=== PATIENT | male | born 1970 | race Caucasian/White ===

== ENCOUNTER 2016-03-12 07:16 | Emergency (ER) | payer MEDICAID ==
[~2016-03-12] VITALS: Ht 182.9 cm; Wt 73.0 kg
[~2016-03-12 07:16] MED LIST: HYDR-3533 PO; IBUP800 PO
[2016-03-12 07:19] VITALS: BP 179/88; PULSE 74; RESP 24; TEMP 97.5; O2SAT 100
[2016-03-12] MEDS ORDERED: ORPHENADRINE INJ 60 MG/2 ML AMP IM ONE (07:45)
[2016-03-12] MEDS ORDERED: KETOROLAC TROMETHAMINE 60 MG/2 ML (IM) VIAL IM ONE (07:45)
[2016-03-12] MEDS ORDERED: ROBA500T PO (07:53)
[2016-03-12] MEDS ORDERED: IBUP800T23 PO (07:53)
--- NOTE | 2016-03-12 07:54 | PD ---
HPI Chief Complaint: Back/ Neck Pain or Injury Time Seen by Provider: 07:39 Travel History International Travel<30 days: No Contact w/Intl Traveler<30days: No Traveled to known affect area: No History of Present Illness HPI 45-year-old male presents to the emergency Department with complaint of low back pain after lifting logs on . Has history of chronic low back pain and L4-L5 partial laminectomy in 2003. Pain radiates down both legs; worse on right than left. On Saturday while urinating he had stool come out unexpectedly; reports normal bowel movements thereafter. Otherwise he denies incontinence, encopresis, saddle anesthesias. Reports both his feet feel like they are "asleep." Otherwise denies loss of sensation, decreased range of motion, decreased strength to bilateral lower extremities. Pain is aggravated with movement, walking, extension of the back. Has tried ibuprofen and icy hot with no relief of symptoms. Denies fever, chills, nausea, vomiting. Denies IV drug use. Denies cancer. History of COPD. Allergies to morphine. No other modifying factors or associated signs and symptoms. PFSH Past Medical History COPD: Yes Diminished Hearing: No Respiratory: Yes (COPD) Past Surgical History Abdominal Surgery: Yes (HERNIA REPAIR) Cholecystectomy: Yes Neurologic Surgery: Yes (BACK SX) Social History Alcohol Use: No Tobacco Use: Yes (1.5 ppd) Substance Use: Yes Allergies-Medications (Allergen,Severity, Reaction): Coded Allergies: Morphine (Unverified Adverse Reaction, Intermediate, hives, 03/12/16) Reported Meds & Prescriptions Reported Meds & Active Scripts Active Ibuprofen 800 Mg Tab 800 Mg PO Q6HR PRN Robaxin (Methocarbamol) 500 Mg Tab 500 Mg PO QID PRN Review of Systems Except as stated in HPI: all other systems reviewed are Neg Physical Exam Narrative GENERAL: Well-nourished, well-developed male patient, in no acute distress SKIN: Warm and dry. HEAD: Atraumatic. Normocephalic. EYES: Pupils equal and round. No scleral icterus. No injection or drainage. ENT: Mucosa pink and moist. Airway patent. NECK: Trachea midline. CARDIOVASCULAR: Regular rate. RESPIRATORY: No accessory muscle use. GASTROINTESTINAL: Flat. MUSCULOSKELETAL: Bilateral lower extremities supple and non-tense with 2+ pedal pulses and sensory intact; with full range of motion and 5/5 strength. Active dorsiflexion and extension of bilateral feet. Bilateral straight leg raise is positive for low back pain. Ambulatory at bedside. Sitting up in bed at 90. No obvious deformities. No clubbing. No cyanosis. No edema. BACK: Midline point tenderness on palpation of the lumbar spine. Tenderness on palpation of bilateral paraspinous lumbar area. No obvious deformities. NEUROLOGICAL: Awake and alert. Oriented 3. No obvious cranial nerve deficits. Motor grossly within normal limits. Normal speech. Moves all extremities. 5/5 strength to all extremities. Sensory intact. PSYCHIATRIC: Appropriate mood and affect; insight and judgment normal. Data Data Last Documented VS Vital Signs Date Time Temp Pulse Resp B/P Pulse Ox O2 Delivery O2 Flow Rate FiO2 03/12/16 09:23 18 03/12/16 07:19 97.5 74 179/[address] Lumb Spine W/O Contrast (03/12/16 ) Ketorolac Inj (Toradol Inj) (03/12/16 07:45) Orphenadrine Inj (Norflex Inj) (03/12/16 07:45) MDM Medical Decision Making Medical Screen Exam Complete: Yes Emergency Medical Condition: Yes Medical Record Reviewed: Yes Differential Diagnosis Acute exacerbation of chronic low back pain, sciatica, low back strain Narrative Course 45-year-old male physical exam consistent with low back strain. Patient has history of chronic low back pain and L4-L5 partial laminectomy in 2003. He endorses midline point tenderness on palpation of the lumbar spine and loss of bowel movement on Saturday during urination; Reports normal bowel movements thereafter. Endorses both feet with paresthesias. Bilateral lower extremities are supple and non-tense 2+ pedal pulses and sensory intact. His pain seems to be out of proportion with physical findings. I will order a CT of the lumbar spine to rule out any acute findings secondary to history of present illness and physical findings. Denies IV drug use. Denies cancer. Toradol and Norflex administered in the ER. CT lumbar spine ordered. 0943: CT lumbar spine Minimal central to left paracentral disc bulge at L4-5. If this is to be further evaluated this should be performed with scheduled elective outpatient MRI of the lumbar spine. Patient provided copy of CT scan and recommended to follow up outpatient for MRI. Patient verbalized understanding and agreement of treatment plan. Ibuprofen and Robaxin prescribed for home. Patient is medically cleared and stable for discharge. Discussed reasons to return to the emergency department. Instructed patient to follow up with primary care provider. Patient agrees with treatment plan. The patients vital signs are stable and the patient is stable for outpatient follow- up and treatment. Patient discharged home, stable and in no acute distress. Diagnosis Primary Impression: Low back strain Qualified Code: S39.012A - Low back strain, initial encounter Referrals: Primary Care Physician Patient Instructions: General Instructions, Low Back Strain (ED) Departure Forms: Tests/Procedures, Work Release Enter return to work date: Mar 14, 2016 Additional Instructions: Tylenol or ibuprofen as directed and as needed for pain Robaxin as prescribed and as needed for muscle spasms Heating pad and/or ice to affected area to reduce pain Avoid aggravating activities; increase activity as tolerated Follow-up with primary care provider Return to emergency department immediately with worsening of symptoms Med/Other Pt SpecificInfo: Prescription(s) given Scripts Ibuprofen 800 Mg Psc288 Mg PO Q6HR PRN (PAIN SCALE 1 TO 10) #30 TAB Ref 0 Prov:Jennifer Arvizu 03/12/16 Methocarbamol (Robaxin)500 Mg [id number] Mg PO QID PRN (MUSCLE SPASM) #30 TAB Ref 0 Prov:Jennifer Arvizu 03/12/16 Disposition: 01 DISCHARGE HOME Condition: Stable Jennifer Arvizu Mar 12, 2016 07:54
[2016-03-12 09:23] VITALS: RESP 18
--- NOTE | 2016-03-12 09:39 | RADRPT ---
EXAM DATE/TIME: 03/12/2016 08:47 [facility] COMPARISON: No previous studies available for comparison. INDICATIONS : Lower back pain. RADIATION DOSE: 17.04 CTDIvol (mGy) MEDICAL HISTORY : Chronic obstructive pulmonary disease. SURGICAL HISTORY : Cholecystectomy. Hernia repair ENCOUNTER: Initial ACUITY: 1 day PAIN SCALE: 10/10 LOCATION: lower back TECHNIQUE: Volumetric scanning of the lumbar spine was performed. Multiplanar reconstructions in the sagittal, coronal and oblique axial planes were performed. Using automated exposure control and adjustment of the mA and/or kV according to patient size, radiation dose was kept as low as reasonably achievable t o obtain optimal diagnostic quality images. FINDINGS: VERTEBRAE: Normal vertebral body height. ALIGNMENT: No evidence of subluxation. T12-L1: The thecal sac has a normal diameter. No evidence of disc bulge or protrusion. The neural foramina are patent bilaterally. L1-L2: The thecal sac has a normal diameter. No evidence of disc bulge or protrusion. The neural foramina are patent bilaterally. L2-L3: The thecal sac has a normal diameter. No evidence of disc bulge or protrusion. The neural foramina are patent bilaterally. L3-L4: The thecal sac has a normal diameter. No evidence of disc bulge or protrusion. The neural foramina are patent bilaterally. L4-L5: The thecal sac has a normal diameter. There is a minimal central 2 minimal left paracentral disc bul ge. The neural foramina are patent bilaterally. L5-S1: The thecal sac has a normal diameter. No evidence of disc bulge or protrusion. The neural foramina are patent bilaterally. CONCLUSION: Minimal central to left paracentral disc bulge at L4-5. If this is to be further evaluated this shoul d be performed with scheduled elective outpatient MRI of the lumbar spine Tom Williamson MD on March 12, 2016 at 9:32 Board Certified Radiologist. This report was verified electronically.
== END 2016-03-12 10:03 | disposition home or self-care (01) ==
LOC: NEPB 07:16
DX: S39.012A Strain of muscle, fascia and tendon of lower back, initial encounter (principal); F17.210 Nicotine dependence, cigarettes, uncomplicated; Z98.1 Arthrodesis status; J44.9 Chronic obstructive pulmonary disease, unspecified; X50.0XXA Overexertion from strenuous movement or load, initial encounter; Y93.9 Activity, unspecified; Y92.9 Unspecified place or not applicable; Y99.9 Unspecified external cause status
CPT/HCPCS: 72131; 96372; 99284; J1885; J2360

== ENCOUNTER 2016-03-12 10:49 | Emergency (ER) | payer MEDICAID ==
[~2016-03-12] VITALS: Ht 182.9 cm; Wt 72.7 kg
[~2016-03-12 10:49] MED LIST changes: +IBUP800T23 PO; +ROBA500T PO
[2016-03-12 10:51] VITALS: BP 147/85; PULSE 55; RESP 24; TEMP 97.8; O2SAT 95
== END 2016-03-12 10:56 | disposition left against medical advice (07) ==
LOC: NED 10:49
DX: M79.606 Pain in leg, unspecified (principal)
CPT/HCPCS: 99281

== ENCOUNTER 2016-09-02 10:43 | Observation (INO) | payer MEDICAID ==
[~2016-09-02] VITALS: Ht 182.9 cm; Wt 73.5 kg
[~2016-09-02 10:43] MED LIST changes: -HYDR-3533 PO; -IBUP800 PO
[2016-09-02 10:45] VITALS: BP 129/70; PULSE 68; RESP 20; TEMP 98.2; O2SAT 98
[2016-09-02] MEDS ORDERED: ALBUAER3 INH (10:52)
[2016-09-02 11:02] VITALS: BP_SYST 117; BP_SYST 140; BP_DIAS 61; BP_DIAS 81; PULSE 61; RESP 16; O2SAT 100
[2016-09-02] MEDS: SODIUM CHLORIDE 0.9% FLUSH 10 ML FLUSH IVF PRN ×2 (11:07→12:38)
--- NOTE | 2016-09-02 11:12 | PD ---
HPI Chief Complaint: Chest Pain Time Seen by Provider: 10:51 Travel History International Travel<30 days: No Contact w/Intl Traveler<30days: No Traveled to known affect area: No History of Present Illness HPI Patient is a 45-year-old male with history of COPD, presents to emergency room with complaints of chest pain. Patient reports that he has been having chest pain for the past couple days, patient reports the chest pain was initially to his right chest and reports that chest pain is not throughout his chest wall. Patient reports that chest pain has been constant, feels a Pressure to his chest. Patient reports that he has been feeling short of breath with his symptoms, patient reports that taking a deep breath exacerbates symptoms. Patient denies history of chest pain in the past. Patient with no recent travels. Patient is a smoker. Patient with no family history of early [place] or ACS [facility] Past Medical History COPD: Yes Diminished Hearing: No Respiratory: Yes (COPD) Tetanus Vaccination: > 5 Years Influenza Vaccination: Yes Past Surgical History Abdominal Surgery: Yes (HERNIA REPAIR) Cholecystectomy: Yes Neurologic Surgery: Yes (BACK SX) Social History Alcohol Use: No (pt denies ) Tobacco Use: Yes (1.5 ppd) Substance Use: No (pt denies) Allergies-Medications (Allergen,Severity, Reaction): Coded Allergies: Morphine (Unverified Allergy, Intermediate, hives, 09/02/16) Ultram (Verified Allergy, Intermediate, rash, 09/02/16) Reported Meds & Prescriptions Reported Meds & Active Scripts Active Reported Proair Hfa 8.5 GM Inh (Albuterol Sulfate) 90 Mcg/Act Aer 2 Puff INH Q4-6H PRN 108 mcg/actuation Review of Systems General / Constitutional: No: Fever Eyes: No: Visual changes HENT: No: Headaches Cardiovascular: Positive: Chest Pain or Discomfort Respiratory: Positive: Shortness of Breath Gastrointestinal: No: Abdominal Pain Genitourinary: No: Dysuria Musculoskeletal: No: Pain Skin: No Rash Neurologic: No: Weakness Psychiatric: No: Depression Endocrine: No: Polydipsia Hematologic/Lymphatic: No: Easy Bruising Physical Exam Narrative GENERAL: No acute distress, nontoxic SKIN: Focused skin assessment warm/dry. HEAD: Atraumatic. Normocephalic. EYES: Pupils equal and round. No scleral icterus. No injection or drainage. ENT: No nasal bleeding or discharge. Mucous membranes pink and moist. NECK: Trachea midline. No JVD. CARDIOVASCULAR: Regular rate and rhythm. No murmur appreciated. RESPIRATORY: No accessory muscle use. Clear to auscultation. Breath sounds equal bilaterally. GASTROINTESTINAL: Abdomen soft, non-tender, nondistended. Hepatic and splenic margins not palpable. MUSCULOSKELETAL: No obvious deformities. No clubbing. No cyanosis. No edema. NEUROLOGICAL: Awake and alert. No obvious cranial nerve deficits. Motor grossly within normal limits. Normal speech. PSYCHIATRIC: Appropriate mood and affect; insight and judgment normal. Data Data Last Documented VS Vital Signs Date Time Temp Pulse Resp B/P Pulse Ox O2 Delivery O2 Flow Rate FiO2 09/02/16 12:02 18 09/02/16 11:57 97.8 60 126/82 100 Room Air Orders Electrocardiogram (09/02/16 11:01) B-Type Natriuretic Peptide (09/02/16 11:01) Ckmb (Isoenzyme) Profile (09/02/16 11:01) Complete Blood Count With Diff (09/02/16 11:01) Comprehensive Metabolic Panel (09/02/16 11:01) D-Dimer (09/02/16 11:01) Magnesium (Mg) (09/02/16 11:01) Prothrombin Time / Inr (Pt) (09/02/16 11:01) Act Partial Throm Time (Ptt) (09/02/16 11:01) Troponin I (09/02/16 11:01) Chest, Single Ap (09/02/16 11:01) Ecg Monitoring (09/02/16 11:01) Bilateral Bp Monitoring (09/02/16 11:01) Iv Access Insert/Monitor (09/02/16 11:01) Aspirin Chew (Aspirin Chew) (09/02/16 11:15) Sodium Chloride 0.9% Flush (Ns Flush) (09/02/16 11:15) Sodium Chlorid 0.9% 500 Ml Inj (Ns 500 M (09/02/16 11:15) Nitroglycerin Sl (Nitrostat Sl) (09/02/16 11:15) Ketorolac Inj (Toradol Inj) (09/02/16 12:30) Admit Order (Ed Use Only) (09/02/16 12:55) Labs Laboratory Tests Test 09/02/16 10:50 White Blood Count 11.3 TH/MM3 Red Blood Count 3.97 MIL/MM3 Hemoglobin 13.8 GM/DL Hematocrit 39.3 % Mean Corpuscular Volume 98.9 FL Mean Corpuscular Hemoglobin 34.8 PG Mean Corpuscular Hemoglobin 35.1 % Concent Red Cell Distribution Width 13.7 % Platelet Count 263 TH/MM3 Mean Platelet Volume 7.1 FL Neutrophils (%) (Auto) 47.8 % Lymphocytes (%) (Auto) 43.5 % Monocytes (%) (Auto) 6.4 % Eosinophils (%) (Auto) 1.7 % Basophils (%) (Auto) 0.6 % Neutrophils # (Auto) 5.4 TH/MM3 Lymphocytes # (Auto) 4.9 TH/MM3 Monocytes # (Auto) 0.7 TH/MM3 Eosinophils # (Auto) 0.2 TH/MM3 Basophils # (Auto) 0.1 TH/MM3 CBC Comment DIFF FINAL Differential Comment Prothrombin Time 10.2 SEC Prothromb Time International 0.9 RATIO Ratio Activated Partial 27.1 SEC Thromboplast Time D-Dimer Quantitative (PE/DVT) LESS THAN 0.19 MG/L FEU Sodium Level 141 MEQ/L Potassium Level 3.6 MEQ/L Chloride Level 104 MEQ/L Carbon Dioxide Level 28.6 MEQ/L Anion Gap 8 MEQ/L Blood Urea Nitrogen 12 MG/DL Creatinine 0.74 MG/DL Estimat Glomerular Filtration 115 ML/MIN Rate Random Glucose 108 MG/DL Calcium Level 9.1 MG/DL Magnesium Level 1.9 MG/DL Total Bilirubin 0.3 MG/DL Aspartate Amino Transf 15 U/L (AST/SGOT) Alanine Aminotransferase 22 U/L (ALT/SGPT) Alkaline Phosphatase 75 U/L Total Creatine Kinase 71 U/L Troponin I LESS THAN 0.02 NG/ML B-Type Natriuretic Peptide 38 PG/ML Total Protein 7.3 GM/DL Albumin 3.8 GM/DL MDM Medical Decision Making Medical Screen Exam Complete: Yes Emergency Medical Condition: Yes Interpretation(s) EKG at 1055: NSR at 63bpm, qt/qtc: 398/406, no acute st or t wave changes Vital Signs Date Time Temp Pulse Resp B/P Pulse Ox O2 Delivery O2 Flow Rate FiO2 09/02/16 10:53 68 20 100 Room Air 09/02/16 10:45 98.2 68 20 129/70 98 Room Air Differential Diagnosis Differential includes ACS, arrhythmia, PE, DVT, muscle strain, pneumonia, electrolyte abnormality Narrative Course Patient is a 45-year-old male who presents to emergency room with chest pain. Patient has been having ongoing chest pain for the past few days, reports the chest pain was initially in the right chest, now chest pain is diffusely throughout his chest. Patient reports that pain feels like a "pressure to his chest." Patient was placed on a laboratory monitor upon arrival to the emergency room. Lab work including cardiac enzymes ordered. He was given a dose of aspirin 162 mg, sublingual nitroglycerin ordered to see if this provides relief with this chest pain. Vital Signs Date Time Temp Pulse Resp B/P Pulse Ox O2 Delivery O2 Flow Rate FiO2 09/02/16 12:02 18 09/02/16 11:57 97.8 60 18 126/82 100 Room Air 09/02/16 11:02 61 16 140/81 100 Room Air 117/61 09/02/16 10:53 68 20 100 Room Air 09/02/16 10:45 98.2 68 20 129/70 98 Room Air Laboratory Tests Test 09/02/16 10:50 White Blood Count 11.3 TH/MM3 (4.0-11.0) Red Blood Count 3.97 MIL/MM3 (4.50-5.90) Hemoglobin 13.8 GM/DL (13.0-17.0) Hematocrit 39.3 % (39.0-51.0) Mean Corpuscular Volume 98.9 FL (80.0-100.0) Mean Corpuscular Hemoglobin 34.8 PG (27.0-34.0) Mean Corpuscular Hemoglobin 35.1 % Concent (32.0-36.0) Red Cell Distribution Width 13.7 % (11.6-17.2) Platelet Count 263 TH/MM3 (150-450) Mean Platelet Volume 7.1 FL (7.0-11.0) Neutrophils (%) (Auto) 47.8 % (16.0-70.0) Lymphocytes (%) (Auto) 43.5 % (9.0-44.0) Monocytes (%) (Auto) 6.4 % (0.0-8.0) Eosinophils (%) (Auto) 1.7 % (0.0-4.0) Basophils (%) (Auto) 0.6 % (0.0-2.0) Neutrophils # (Auto) 5.4 TH/MM3 (1.8-7.7) Lymphocytes # (Auto) 4.9 TH/MM3 (1.0-4.8) Monocytes # (Auto) 0.7 TH/MM3 (0-0.9) Eosinophils # (Auto) 0.2 TH/MM3 (0-0.4) Basophils # (Auto) 0.1 TH/MM3 (0-0.2) CBC Comment DIFF FINAL Differential Comment Prothrombin Time 10.2 SEC (9.8-11.6) Prothromb Time International 0.9 RATIO Ratio Activated Partial 27.1 SEC Thromboplast Time (24.3-30.1) D-Dimer Quantitative (PE/DVT) LESS THAN 0.19 MG/L FEU (0.00-0.50) Sodium Level 141 MEQ/L (136-145) Potassium Level 3.6 MEQ/L (3.5-5.1) Chloride Level 104 MEQ/L (98-107) Carbon Dioxide Level 28.6 MEQ/L (21.0-32.0) Anion Gap 8 MEQ/L (5-15) Blood Urea Nitrogen 12 MG/DL (7-18) Creatinine 0.74 MG/DL (0.60-1.30) Estimat Glomerular Filtration 115 ML/MIN Rate (>89) Random Glucose 108 MG/DL (74-106) Calcium Level 9.1 MG/DL (8.5-10.1) Magnesium Level 1.9 MG/DL (1.5-2.5) Total Bilirubin 0.3 MG/DL (0.2-1.0) Aspartate Amino Transf 15 U/L (15-37) (AST/SGOT) Alanine Aminotransferase 22 U/L (12-78) (ALT/SGPT) Alkaline Phosphatase 75 U/L (45-117) Total Creatine Kinase 71 U/L (39-308) Troponin I LESS THAN 0.02 NG/ML (0.02-0.05) B-Type Natriuretic Peptide 38 PG/ML (0-100) Total Protein 7.3 GM/DL (6.4-8.2) Albumin 3.8 GM/DL (3.4-5.0) Last Impressions Chest X-Ray 09/02/16 1101 Signed Impressions: Service Date/Time: Friday, September 02, 2016 11:07 - CONCLUSION: No acute disease. Jean-Paul Montalvo MD Diagnosis Primary Impression: Chest pain Qualified Code: R07.9 - Chest pain, unspecified type Admitting Information Admitting Physician Requests: Arline Melgar DO Sep 02, 2016 11:12
[2016-09-02] MEDS ORDERED: ASPIRIN 81 MG CHEW TAB PO ONE (11:15)
[2016-09-02] MEDS ORDERED: SODIUM CHLORID 0.9% 500 ML INJ 500 ML IV ONE (11:15)
[2016-09-02] MEDS: NITROGLYCERIN 0.4 MG SL 25 TABS/BTL SL SCH ×3 (11:20→11:57)
[2016-09-02 11:33] LABS: AUTOMATED NEUTROPHIL # 5.4 TH/MM3 (1.8-7.7); BASOPHIL # 0.1 TH/MM3 (0-0.2); BASOPHIL % 0.6 % (0.0-2.0); EOSINOPHIL # 0.2 TH/MM3 (0-0.4); EOSINOPHIL % 1.7 % (0.0-4.0); HEMATOCRIT 39.3 % (39.0-51.0); HEMO FLAGS DIFF FINAL; LYMPH % 43.5 % (9.0-44.0); LYMPHOCYTE # 4.9 TH/MM3 (1.0-4.8); MEAN CELL VOLUME 98.9 FL (80.0-100.0); MEAN CORPUSCULAR HEMOGLOBIN 34.8 PG (27.0-34.0); MEAN CORPUSCULAR HGB CONC 35.1 % (32.0-36.0); MONO % 6.4 % (0.0-8.0); NEUT % 47.8 % (16.0-70.0); PLATELET COUNT 263 TH/MM3 (150-450); RED BLOOD COUNT 3.97 MIL/MM3 (4.50-5.90); RED CELL DISTRIBUTION WIDTH 13.7 % (11.6-17.2); WHITE BLOOD COUNT 11.3 TH/MM3 (4.0-11.0)
[2016-09-02 11:46] LABS: APTT (PATIENT) 27.1 SEC (24.3-30.1); INTERNATIONAL NORMALIZED RATIO 0.9 RATIO; PROTHROMBIN TIME - PATIENT 10.2 SEC (9.8-11.6)
--- NOTE | 2016-09-02 11:52 | RADRPT ---
EXAM DATE/TIME: 09/02/2016 11:07 [facility] COMPARISON: No previous studies available for comparison. INDICATIONS : Chest pain and shortness of breath. MEDICAL HISTORY : Chronic obstructive pulmonary disease. SURGICAL HISTORY : Cholecystectomy. Hernia repair ENCOUNTER: Initial ACUITY: 4 - 6 days PAIN SCORE: 8/10 LOCATION: Bilateral chest FINDINGS: A single view of the chest demonstrates the lungs to be symmetrically aerated without evidence of mas s, infiltrate or effusion. The cardiomediastinal contours are unremarkable. Osseous structures are intact. CONCLUSION: No acute disease. Jean-Paul Montalvo MD on September 02, 2016 at 11:50 Board Certified Radiologist. This report was verified electronically.
[2016-09-02 11:57] VITALS: BP 126/82; PULSE 60; RESP 18; TEMP 97.8; O2SAT 100
[2016-09-02 11:57] LABS: ALT (GPT) 22 U/L (12-78); ANION GAP 8 MEQ/L (5-15); AST (GOT) 15 U/L (15-37); BICARBONATE 28.6 MEQ/L (21.0-32.0); BLOOD UREA NITROGEN 12 MG/DL (7-18); CHLORIDE 104 MEQ/L (98-107); GLOMERULAR FILTRATION RATE 115 ML/MIN (>89); MAGNESIUM 1.9 MG/DL (1.5-2.5); POTASSIUM 3.6 MEQ/L (3.5-5.1); SODIUM (NA) 141 MEQ/L (136-145)
[2016-09-02 12:01] LABS: ALKALINE PHOSPHATASE 75 U/L (45-117); TOTAL BILIRUBIN ADULT 0.3 MG/DL (0.2-1.0)
[2016-09-02 12:13] LABS: CREATINE KINASE 71 U/L (39-308)
[2016-09-02] MEDS ORDERED: KETOROLAC TROMETHAMINE 30 MG/ML (IVP) VIAL IV PUSH ONE (12:30)
[2016-09-02 13:00] VITALS: BP 113/70; PULSE 56; RESP 17; TEMP 97.8; O2SAT 99
[2016-09-02] MEDS ORDERED: ACETAMINOPHEN 500 MG CPLT PO PRN (13:15)
[2016-09-02] MEDS ORDERED: ONDANSETRON HCL 4 MG/2 ML VIAL IV PRN (13:15)
[2016-09-02] MEDS ORDERED: NITROGLYCERIN 0.4 MG SL 25 TABS/BTL SL PRN (13:15)
[2016-09-02] MEDS ORDERED: SODIUM CHLORIDE 0.9% FLUSH 10 ML FLUSH IV FLUSH SCH (21:00)
[2016-09-03] MEDS ORDERED: ASPIRIN 325 MG TAB PO SCH (09:00)
--- NOTE | 2016-09-03 14:24 | EKG ---
Date Performed: 09/02/2016 Time Performed: 10:55:21 PTAGE: 45 years EKG: Sinus rhythm POSSIBLE LEFT ATRIAL ENLARGEMENT BORDERLINE ECG INTERPRETATION BASED ON A DEFAULT AGE OF 41 YEARS NO PREVIOUS TRACING DOCTOR: Dipak Whiting Interpretating Date/Time 09/03/2016 14:23:08
== END 2016-09-02 14:02 | disposition left against medical advice (07) ==
LOC: NEPC 10:43 → NEDA 12:57
PROVIDERS: ADMIT Internal Medicine Interventional Cardiology; ATTEND Internal Medicine Interventional Cardiology
DX: R07.89 Other chest pain (principal); R06.02 Shortness of breath; J44.9 Chronic obstructive pulmonary disease, unspecified; F17.200 Nicotine dependence, unspecified, uncomplicated; Z53.21 Procedure and treatment not carried out due to patient leaving prior to being seen by health care provider
CPT/HCPCS: 71010; 80053; 82550; 83735; 83880; 84484; 85025; 85379; 85610; 85730; 93005; 96361; 96374; 99285; G0378; J1885; J7040

== ENCOUNTER 2017-09-30 09:25 | Observation (INO) ==
[2017-09-30 09:31] VITALS: TEMP 97.9
[2017-09-30] MEDS ORDERED: Aspirin 325 MG Tablet PO ONE (10:03)
--- NOTE | 2017-09-30 10:06 | ED ---
HPI General Chief Complaint: Chest Pain Stated Complaint: Chest Pain Time Seen by Provider: 09/30/17 09:37 Source: patient History of Present Illness HPI narrative: Patient presents to the emergency department complaining of intermittent chest pain for months. Pain is described as being on the left side , radiating to his neck/jaw/left arm, alleviated with aspirin, minutes in duration, no aggravating symptoms. Patient states that he had similar symptoms 6 months ago and was to be admitted to the hospital but he left AGAINST MEDICAL ADVICE. He denies chest pain now and reports last aspirin use was yesterday. Complete Quality Measures for STEMI Alert Patients Related Data Home Medications Medication Instructions Recorded Confirmed buprenorphine-naloxone [Suboxone] 1 film BUCCAL BID 09/30/17 09/30/17 Allergies Allergy/AdvReac Type Severity Reaction Status Date / Time morphine Allergy Intermediate hives Verified 09/30/17 09:36 tramadol Allergy Intermediate rash Verified 09/30/17 09:36 Review of Systems ROS: all other systems reviewed are negative [facility] Medical History Medical History COPD (chronic obstructive pulmonary disease) (Acute) Opioid dependence (Acute) Surgical History Surgical History History of cholecystectomy (Acute) History of laminectomy (Acute) History of shoulder surgery (Acute) Social History Social History Substance History: Past History Second Hand Smoke Exposure: Yes Smoking Status: Current every day smoker Tobacco Type: Cigarettes How Often Do You Have a Drink Containing Alcohol: Never Recent Travel in [facility] within the Last 8 Weeks: No Recent Out of Country Travel within the Last 8 Weeks: No Substance Abuse Detail Opiates: Substance Use Status: Early Remission Route Used Substance Abuse: By Mouth Substance Abuse Comment: pt states became addicted after surgery Immunization History Tetanus Immunization: <5 Years Hx Influenza Vaccine This Season: Yes Exam Narrative Exam Narrative: GENERAL: No acute distress. SKIN: Focused skin assessment warm/dry. HEAD: Atraumatic. Normocephalic. EYES: Pupils equal and round. No scleral icterus. No injection or drainage. ENT: No nasal bleeding or discharge. Mucous membranes pink and moist. NECK: Trachea midline. No JVD. CARDIOVASCULAR: Regular rate and rhythm. No murmur appreciated. RESPIRATORY: No accessory muscle use. Clear to auscultation. Breath sounds equal bilaterally. GASTROINTESTINAL: Abdomen soft, non-tender, nondistended. Hepatic and splenic margins not palpable. MUSCULOSKELETAL: No obvious deformities. No clubbing. No cyanosis. No edema. NEUROLOGICAL: Awake and alert. No obvious cranial nerve deficits. Motor grossly within normal limits. Normal speech. PSYCHIATRIC: Appropriate mood and affect; insight and judgment normal. Course Initial Documented Vital Signs Temperature 97.9 F 09/30/17 09:29 Pulse Rate 58 L 09/30/17 09:29 Respiratory Rate 16 09/30/17 09:29 Blood Pressure 131/72 09/30/17 09:29 Pulse Oximetry 99 09/30/17 09:29 Last Documented Vital Signs Temperature 97.9 F 09/30/17 09:29 Pulse Rate 63 09/30/17 09:42 Respiratory Rate 15 09/30/17 09:42 Blood Pressure 143/78 H 09/30/17 09:42 Pulse Oximetry 99 09/30/17 09:42 Medical Decision Making MDM Narrative Medical decision making narrative: Patient presents to emergency department complaining of chest pain. Patient placed on cardiac surgeon, continuous pulse ox, and IV access obtained. EKG, chest x-ray, labs, aspirin 325 mg p.o. ordered. CXR- No acute process Labs: normal cbc, coags, chem, cardiac enzymes Admitted to chest pain obs. Differential Diagnosis Differential Diagnosis: ACS, CHF, costochondritis, Lab Data Result diagrams: 09/30/17 10:06 09/30/17 10:06 Lab Results 09/30/17 09/30/17 09/30/17 Range/Units 10:06 10:06 10:06 WBC 8.7 (4.0-11.0) th/mm3 RBC 4.19 L (4.50-5.90) mil/mm3 Hgb 13.8 (13.0-17.0) gm/dL Hct 40.9 (39.0-51.0) % MCV 97.6 (80.0-100.0) fL MCH 33.0 (27.0-34.0) pg MCHC 33.9 (32.0-36.0) % RDW 13.6 (11.6-17.2) % Plt Count 239 (150-450) th/mm3 MPV 7.3 (7.0-11.0) fL Neut % (Auto) 65.7 (16.0-70.0) % Lymph % (Auto) 24.4 (9.0-44.0) % Brooke % (Auto) 7.4 (0.0-8.0) % Eos % (Auto) 1.7 (0.0-4.0) % Baso % (Auto) 0.8 (0.0-2.0) % Neut # (Auto) 5.7 (1.8-7.7) th/mm3 Lymph # (Auto) 2.1 (1.0-4.8) th/mm3 Brooke # (Auto) 0.6 (0.0-0.9) th/mm3 Eos # (Auto) 0.1 (0.0-0.4) th/mm3 Baso # (Auto) 0.1 (0.0-0.2) th/mm3 WBC Differential . Differential Comment Auto diff final PT 9.9 (9.8-11.6) sec INR 1.0 Ratio APTT 23.9 L (24.3-30.1) sec Sodium 138 (136-145) meq/L Potassium 5.0 (3.5-5.1) meq/L Chloride 106 (98-107) meq/L Carbon Dioxide 24.2 (21.0-32.0) meq/L Anion Gap 8 (5-15) meq/L BUN 8 (7-18) mg/dL Creatinine 0.83 (0.60-1.30) mg/dL Estimated GFR Greater than 89 (>89) mL/min Random Glucose 114 H (74-106) mg/dL Calcium 8.5 (8.5-10.1) mg/dL Magnesium 2.1 (1.5-2.5) mg/dL Total Bilirubin 0.3 (0.2-1.0) mg/dL AST 36 (15-37) U/L ALT 21 (12-78) U/L Alkaline Phosphatase 76 (45-117) U/L Total Creatine Kinase 162 (39-308) U/L CK-MB (CK-2) 1.5 (0.5-3.6) ng/mL Troponin I Less than 0.02 L (0.02-0.05) ng/mL B-Natriuretic Peptide (0-100) pg/mL Total Protein 7.1 (6.4-8.2) g/dL Albumin 3.5 (3.4-5.0) g/dL Urine Color (Yellw/Straw) Urine Clarity (Clear) Urine pH (5.0-8.5) Ur Specific Shelby (1.002-1.035) Urine Protein (Neg-Trace) mg/dL Urine Glucose (UA) (Negative) mg/dL Urine Ketones (Negative) mg/dL Urine Occult Blood (Negative) Urine Nitrate (Negative) Urine Bilirubin (Negative) Urine Urobilinogen (Less than 2) mg/dL Ur Leukocyte Esterase (Negative) Urine RBC (0-3) /hpf Amorphous Sediment (None) /hpf Urine Mucus (Occasional) /lpf Micro UA Comment Urine Culture Comments 09/30/17 09/30/17 Range/Units 10:06 10:10 WBC (4.0-11.0) th/mm3 RBC (4.50-5.90) mil/mm3 Hgb (13.0-17.0) gm/dL Hct (39.0-51.0) % MCV (80.0-100.0) fL MCH (27.0-34.0) pg MCHC (32.0-36.0) % RDW (11.6-17.2) % Plt Count (150-450) th/mm3 MPV (7.0-11.0) fL Neut % (Auto) (16.0-70.0) % Lymph % (Auto) (9.0-44.0) % Brooke % (Auto) (0.0-8.0) % Eos % (Auto) (0.0-4.0) % Baso % (Auto) (0.0-2.0) % Neut # (Auto) (1.8-7.7) th/mm3 Lymph # (Auto) (1.0-4.8) th/mm3 Brooke # (Auto) (0.0-0.9) th/mm3 Eos # (Auto) (0.0-0.4) th/mm3 Baso # (Auto) (0.0-0.2) th/mm3 WBC Differential Differential Comment PT (9.8-11.6) sec INR Ratio APTT (24.3-30.1) sec Sodium (136-145) meq/L Potassium (3.5-5.1) meq/L Chloride (98-107) meq/L Carbon Dioxide (21.0-32.0) meq/L Anion Gap (5-15) meq/L BUN (7-18) mg/dL Creatinine (0.60-1.30) mg/dL Estimated GFR (>89) mL/min Random Glucose (74-106) mg/dL Calcium (8.5-10.1) mg/dL Magnesium (1.5-2.5) mg/dL Total Bilirubin (0.2-1.0) mg/dL AST (15-37) U/L ALT (12-78) U/L Alkaline Phosphatase (45-117) U/L Total Creatine Kinase (39-308) U/L CK-MB (CK-2) (0.5-3.6) ng/mL Troponin I (0.02-0.05) ng/mL B-Natriuretic Peptide 63 (0-100) pg/mL Total Protein (6.4-8.2) g/dL Albumin (3.4-5.0) g/dL Urine Color Yellow (Yellw/Straw) Urine Clarity Hazy H (Clear) Urine pH 7.0 (5.0-8.5) Ur Specific Shelby 1.013 (1.002-1.035) Urine Protein Negative (Neg-Trace) mg/dL Urine Glucose (UA) Negative (Negative) mg/dL Urine Ketones Trace (Negative) mg/dL Urine Occult Blood Negative (Negative) Urine Nitrate Negative (Negative) Urine Bilirubin Negative (Negative) Urine Urobilinogen 2.0 H (Less than 2) mg/dL Ur Leukocyte Esterase Negative (Negative) Urine RBC Less than 1 (0-3) /hpf Amorphous Sediment Rare H (None) /hpf Urine Mucus Few H (Occasional) /lpf Micro UA Comment Culture not ind Urine Culture Comments Culture not ind Imaging Data Radiologist's impression: Chest X-Ray 09/30/17 10:03 CONCLUSION: Negative for acute process ECG Data Attestation: I personally reviewed and interpreted this ECG as follows: (Sinus bradycardia, rate 54, normal axis, normal intervals, QTC 14, left atrial enlargement, right ventricular conduction delay, T wave inversion in lead V1) Discharge Plan Discharge Disposition Patient Disposition: 30 Still Patient Discharge Condition Condition: Stable Discharge Details Diagnosis: Chest pain Physicians Team ED Provider: Arlette Owens Primary Care Provider: Airam Grove Rxs /Orders / Referrals /Forms Prescriptions: No Action buprenorphine-naloxone [Suboxone] 8-2 mg Film 1 film BUCCAL BID RF: 0 Discharge Instructions Patient Printed Instructions: Chest Pain (ED) Discharge Interventions Interventions: Vital Signs Last Done: 09/30/17 09:42 Status ED Status: With Doctor
[2017-09-30 10:25] LABS: Baso # (Auto) 0.1 th/mm3 (0.0-0.2); Baso % (Auto) 0.8 % (0.0-2.0); Eos # (Auto) 0.1 th/mm3 (0.0-0.4); Eos % (Auto) 1.7 % (0.0-4.0); Hematocrit 40.9 % (39.0-51.0); Hemoglobin 13.8 gm/dL (13.0-17.0); Lymph # (Auto) 2.1 th/mm3 (1.0-4.8); Lymph % (Auto) 24.4 % (9.0-44.0); Mean Corpuscular HGB Conc 33.9 % (32.0-36.0); Mean Corpuscular Volume 97.6 fL (80.0-100.0); Mean Platelet Volume 7.3 fL (7.0-11.0); Mono # (Auto) 0.6 th/mm3 (0.0-0.9); Mono % (Auto) 7.4 % (0.0-8.0); Neut # (Auto) 5.7 th/mm3 (1.8-7.7); Neut % (Auto) 65.7 % (16.0-70.0); Platelet Count 239 th/mm3 (150-450); Red Blood Count 4.19 mil/mm3 (4.50-5.90); Red Cell Distribution Width 13.6 % (11.6-17.2); White Blood Count 8.7 th/mm3 (4.0-11.0)
[2017-09-30 10:26] LABS: Amorphous Sediment,Urine Rare /hpf; Bilirubin,Urine Negative (Negative); Clarity,Urine Hazy (Clear); Color,Urine Yellow (Yellw/Straw); Glucose,Urine (UA) Negative (Negative); Leukocyte Esterase,Urine Negative (Negative); Mucus,Urine Few /lpf (Occasional); Nitrite,Urine Negative (Negative); Specific Gravity,Urine 1.013 (1.002-1.035)
[2017-09-30 10:35] LABS: Activated Partial Thrombo Time 23.9 sec (24.3-30.1); Prothrombin Time 9.9 sec (9.8-11.6)
--- NOTE | 2017-09-30 10:52 | XR ---
EXAM DATE: 09/30/2017 10:44 AM EDT AGE/SEX: 47 years / Male INDICATIONS: Chest pain for 6 months, short of breath CLINICAL DATA: This is the patient's initial encounter. Patient reports that signs and symptoms have been present for 4 - 6 months and indicates a pain score of 7/10. MEDICAL/SURGICAL HISTORY: Chronic obstructive pulmonary disease. Cholecystectomy. Inguinal her makeda repair. COMPARISON: [facility] [place]ST SING[place], 09/02/2016. . FINDINGS: A single AP view of the chest demonstrates the lungs to be symmetrically aerated without evidence of mass, infiltrate or effusion. The cardiomediastinal contours are unremarkable. Osseous structures a re intact. CONCLUSION: Negative for acute process Electronically signed by: Rubio Allen MD 09/30/2017 10:51 AM EDT
[2017-09-30 10:54] LABS: Alanine Aminotransferase 21 U/L (12-78)
[2017-09-30 11:02] LABS: Albumin 3.5 g/dL (3.4-5.0); Alkaline Phosphatase 76 U/L (45-117); Anion Gap 8 meq/L (5-15); Aspartate Aminotransferase 36 U/L (15-37); Blood Urea Nitrogen 8 mg/dL (7-18); Calcium 8.5 mg/dL (8.5-10.1); Carbon Dioxide 24.2 meq/L (21.0-32.0); Chloride 106 meq/L (98-107); Creatine Kinase 162 U/L (39-308); Glomerular Filtration Rate Greater Than 89 mL/min (>89); Glucose,Random 114 mg/dL (74-106); Magnesium 2.1 mg/dL (1.5-2.5); Sodium 138 meq/L (136-145); Total Protein 7.1 g/dL (6.4-8.2)
[2017-09-30 11:17] LABS: Creatine Kinase MB 1.5 ng/mL (0.5-3.6)
[2017-09-30 12:11] VITALS: RESP 16
[2017-09-30 13:13] VITALS: BP 117/70; PULSE 50; O2SAT 99
--- NOTE | 2017-09-30 13:22 | P.HPCA ---
History of Present Illness Primary Care Physician: None Chief Complaint: Chest pain History of Present Illness: 47-year-old male current 2 pack a day smoker presents the emergency room for further evaluation of intermittent nonexertional chest pain with associated "numbness and tingling all over body." Occasional radiation to left arm. Location left anterior chest. Characterized as a quick sharp pain. Duration seconds to a few minutes. Occasionally accompanied with nausea, dizziness, and a "flushed feeling." Unable to determine if there is a respiratory component stating "I have bad lungs so I am more short of breath." No precipitating or relieving factors. Decided to come in ER today due to prolonged nature of chest pain, discomfort not necessarily increased in severity or frequency. Does not follow with a primary care provider. No known hypertension, hyperlipidemia, diabetes, or coronary artery disease. Family history unknown. Denies past cardiac testing. No recent illness, injury, trauma. Developed chest pain during interview, last seconds. EKG completed normal sinus bradycardia with no ST-T segment changes - Diagnosis (1) Atypical chest pain (2) Tobacco use Review of Systems All other systems reviewed negative except as stated in HPI PMFSH - History History Provided By: Patient - Medical History Medical History: Medical History (Last Reviewed 09/30/17 @ 13:48 by PRAVIN Patterson) COPD (chronic obstructive pulmonary disease) Opioid dependence - Surgical History Surgical History: Surgical History (Last Reviewed 09/30/17 @ 13:48 by PRAVIN Patterson) History of cholecystectomy History of laminectomy History of shoulder surgery - Tobacco History Second Hand Smoke Exposure: Yes Tobacco Use In Past 30 Days: Yes Smoking Status: Current every day smoker Tobacco Type: Cigarettes Packs Per Day: 2 - Alcohol History How Often Do You Have a Drink Containing Alcohol: Never - Substance Use History Substance History: Past History - Substance Use Type Opiates Status: Early Remission Route Used: By Mouth Comment: pt states became addicted after surgery - Travel History Recent Travel in the [place] Within the Last 8 Weeks: No Recent Travel Out of the Country Within the Last 8 Weeks: No - Immunization History Tetanus Immunization: <5 Years Hx Influenza Vaccine This Season: Yes Medications and Allergies Active Medications: Active Medications Sodium Chloride (Ns Flush) 2 ml IV.FLUSH BID RUBI Sodium Chloride (Ns Flush) 2 ml IV.FLUSH PRN PRN PRN Reason: FLUSH AFTER USING IV ACCESS Allergies Allergy/AdvReac Type Severity Reaction Status Date / Time morphine Allergy Intermediate hives Verified 09/30/17 09:36 tramadol Allergy Intermediate rash Verified 09/30/17 09:36 Home Medications Medication Instructions Recorded Confirmed Type buprenorphine-naloxone [Suboxone] 1 film BUCCAL BID 09/30/17 09/30/17 History Exam Vital signs: Vital Signs 09/30/17 09:29 09/30/17 09:42 09/30/17 11:59 Temperature 97.9 F Pulse Rate 58 L 63 41 L Respiratory Rate 16 15 16 Blood Pressure 131/72 143/78 H 114/69 Pulse Oximetry 99 99 98 09/30/17 13:10 Temperature 97.9 F Pulse Rate 50 L Respiratory Rate 16 Blood Pressure 117/70 Pulse Oximetry 99 Intake & Output 09/29/17 09/30/17 09/30/17 18:59 06:59 18:59 Weight 58.06 kg Narrative: GENERAL: Alert WN, WD, NAD, pleasant, thin, tall, male who appears older than stated age heavily tattooed. HEAD: NC, AT CV: RRR, without murmur, rub, gallop, no JVD. Chest wall nontender to palpation. RESP: Clear lungs throughout bilateral, no crackles, wheeze, rhonchi, symmetrical chest rise, nonlabored, able to speak in full sentences ABD: Soft, NT, ND, no masses, positive bowel tones EXT: Pulses +2x4, no dependent edema MS: Normal tone x4 extremities, nontender, no obvious deformities, full range of motion NEURO: CN II through CN XII grossly intact, motor strength 5/5, gait WNL PSYCH: A+O x3, pleasant affect, appropriate speech, mood, insight and judgment SKIN: Normal turgor, normal texture, no lesions, no rashes, brisk cap refill, even hair distribution Results 09/30/17 10:06 09/30/17 10:06 Cardiac Enzymes 09/30/17 09/30/17 Range/Units 10:06 10:06 AST 36 (15-37) U/L CK-MB (CK-2) 1.5 (0.5-3.6) ng/mL Troponin I Less than 0.02 L (0.02-0.05) ng/mL B-Natriuretic Peptide 63 (0-100) pg/mL Coagulation 09/30/17 09/30/17 Range/Units 10:06 10:06 PT 9.9 (9.8-11.6) sec APTT 23.9 L (24.3-30.1) sec B-Natriuretic Peptide 63 (0-100) pg/mL CBC 09/30/17 Range/Units 10:06 WBC 8.7 (4.0-11.0) th/mm3 RBC 4.19 L (4.50-5.90) mil/mm3 Hgb 13.8 (13.0-17.0) gm/dL Hct 40.9 (39.0-51.0) % Plt Count 239 (150-450) th/mm3 Neut # (Auto) 5.7 (1.8-7.7) th/mm3 Lymph # (Auto) 2.1 (1.0-4.8) th/mm3 Butler # (Auto) 0.6 (0.0-0.9) th/mm3 Eos # (Auto) 0.1 (0.0-0.4) th/mm3 Baso # (Auto) 0.1 (0.0-0.2) th/mm3 Comprehensive Metabolic Panel 09/30/17 Range/Units 10:06 Sodium 138 (136-145) meq/L Potassium 5.0 (3.5-5.1) meq/L Chloride 106 (98-107) meq/L Carbon Dioxide 24.2 (21.0-32.0) meq/L BUN 8 (7-18) mg/dL Creatinine 0.83 (0.60-1.30) mg/dL Calcium 8.5 (8.5-10.1) mg/dL AST 36 (15-37) U/L ALT 21 (12-78) U/L Alkaline Phosphatase 76 (45-117) U/L Total Protein 7.1 (6.4-8.2) g/dL Albumin 3.5 (3.4-5.0) g/dL Intake and Output 09/29/17 09/30/17 09/30/17 22:59 06:59 14:59 Other: Weight 58.06 kg Patient Weight 10/01/17 06:59 Weight 58.06 kg EKG interpretations - EKG EKG results cardiology: normal axis, normal QRS, normal ST/T - Dysrhythmias Sinus rhythms and dysrhythmias: sinus bradycardia (< 50 bpm) Caprini VTE Risk Assessment Caprini VTE Risk Assessment: No/Low Risk (score <= 1) Caprini Risk Assessment Model: Point Value = 1 Point Value = 2 Point Value = 3 Point Value = 5 Age 41-60 Minor surgery BMI > 25 kg/m2 Swollen legs Varicose veins or History of unexplained or recurrent spontaneous Oral contraceptives or hormone replacement Sepsis (< 1 month) Serious lung disease, including pneumonia (< 1 month) Abnormal pulmonary function Acute myocardial infarction Congestive heart failure (< 1 month) History of inflammatory bowel disease Medical patient at bed rest Age 61-74 Arthroscopic surgery Major open surgery (> 45 min) Laparoscopic surgery (> 45 min) Malignancy Confined to bed (> 72 hours) Immobilizing plaster cast Central venous access Age >= 75 History of VTE Family history of VTE Factor V Leiden Prothrombin [id number] Lupus anticoagulant Anticardiolipin antibodies Elevated serum homocysteine Heparin-induced thrombocytopenia Other congenital or acquired thrombophilia Stroke (< 1 month) Elective arthroplasty Hip, pelvis, or leg fracture Acute spinal cord injury (< 1 month) Prophylaxis Regimen: Total Risk Factor Score Risk Level Prophylaxis Regimen 0-1 Low Early ambulation 2 Moderate Order ONE of the following: *Sequential Compression Device (SCD) *Heparin 5000 units SQ BID 3-4 Higher Order ONE of the following medications: *Heparin 5000 units SQ TID *Enoxaparin/Lovenox 40 mg SQ daily (WT < 150 kg, CrCl > 30 mL/min) *Enoxaparin/Lovenox 30 mg SQ daily (WT < 150 kg, CrCl > 10-29 mL/min) *Enoxaparin/Lovenox 30 mg SQ BID (WT < 150 kg, CrCl > 30 mL/min) AND/OR *Sequential Compression Device (SCD) 5 or more Highest Order ONE of the following medications: *Heparin 5000 units SQ TID (Preferred with Epidurals) *Enoxaparin/Lovenox 40 mg SQ daily (WT < 150 kg, CrCl > 30 mL/min) *Enoxaparin/Lovenox 30 mg SQ daily (WT < 150 kg, CrCl > 10-29 mL/min) *Enoxaparin/Lovenox 30 mg SQ BID (WT < 150 kg, CrCl > 30 mL/min) AND *Sequential Compression Device (SCD) Assessment and Plan - Assessment (1) Atypical chest pain Code(s): R07.89 - Other chest pain Status: Acute Plan: Admitted chest pain center. Discomfort intermittent for months. Seen and evaluated by Dr. Dipak Whiting. Proceed with exercise stress test this afternoon. If unremarkable, plans are to discharge home with follow-up with PCP. Strongly advised him to establish with a local primary care provider and smoking cessation. (2) Tobacco use Code(s): Z72.0 - Tobacco use Status: Chronic Plan: Whole strongly encouraged stress importance of tobacco cessation. Instructed to quit smoking. Discussed free smoking cessation program offer by [facility].
[2017-09-30 14:10] LABS: Creatine Kinase 109 U/L (39-308)
--- NOTE | 2017-09-30 16:18 | ECG ---
Date Performed: 09/30/2017 Time Performed: 09:39:13 PTAGE: 47 years EKG: SINUS BRADYCARDIA POSSIBLE LEFT ATRIAL ENLARGEMENT POSSIBLE RIGHT VENTRICULAR CONDUCTION DE LAY BORDERLINE ECG Since the PREVIOUS TRACING , no significant change noted PREVIOUS TRACIN09/02/2016 10.55 DOCTOR: Ashley Pérez Interpretating Date/Time 09/30/2017 16:17:57
--- NOTE | 2017-10-01 16:18 | ECG ---
Date Performed: 09/30/2017 Time Performed: 12:58:01 PTAGE: 47 years EKG: SINUS BRADYCARDIA POSSIBLE LEFT ATRIAL ENLARGEMENT POSSIBLE RIGHT VENTRICULAR CONDUCTION DE LAY BORDERLINE ECG Since PREVIOUS TRACING , no significant change noted PREVIOUS TRACIN09/30/2017 09.39 DOCTOR: Urszula Avila Interpretating Date/Time 10/01/2017 16:17:17
--- NOTE | 2017-10-01 16:19 | ECG ---
Date Performed: 09/30/2017 Time Performed: 13:26:44 PTAGE: 47 years EKG: SINUS BRADYCARDIA POSSIBLE LEFT ATRIAL ENLARGEMENT POSSIBLE RIGHT VENTRICULAR CONDUCTION DE LAY BORDERLINE ECG Since PREVIOUS TRACING , no significant change noted PREVIOUS TRACIN09/30/2017 12.58 DOCTOR: Urszula Avila Interpretating Date/Time 10/01/2017 16:17:38
--- NOTE | 2017-10-01 16:19 | TR ---
Date Performed: 09/30/2017 Time Performed: 13:46:36 DOCTOR: Urszula Avila DRUG LIST: CLINICAL HISTORY: REASON FOR TEST: REASON FOR ENDING: OBSERVATION: CONCLUSION: Triston protocol attempted. Stopped sec to leg fatigue. Maximum PV=684 Max HR Achieved =70.0% Maximum LA=676/70 Total Exercise Time=11:00. No reprod chest discomfort. Rare PVC and PAC. Ups loping st segments. Resting heart rate 40s. Great exercise tolerance. Normal bp response. Recovery qu ick and unremarkable. COMMENTS: No ischemia
== END 2017-09-30 15:38 | disposition home or self-care (01) ==
LOC: NEPE 09:25 → NEPGCP 09:25 → NEDA 09:25 → NEPGCP 13:08
PROVIDERS: ADMIT Internal Medicine Cardiovascular Disease; ATTEND Internal Medicine Cardiovascular Disease
DX: F17.210 Nicotine dependence, cigarettes, uncomplicated; Z88.5 Allergy status to narcotic agent; J44.9 Chronic obstructive pulmonary disease, unspecified; Z90.49 Acquired absence of other specified parts of digestive tract; R07.89 Other chest pain; R94.31 Abnormal electrocardiogram [ECG] [EKG]; R20.0 Anesthesia of skin; F11.20 Opioid dependence, uncomplicated